=== PATIENT | female | born 1995 | race African-American/Black ===

== ENCOUNTER 2024-03-21 14:41 | Emergency (ER) | payer OTHER ==
[~2024-03-21] VITALS: Ht 165.1 cm; Wt 75.0 kg
[2024-03-21 14:45] VITALS: PULSE 93; O2SAT 100
[2024-03-21 15:11] VITALS: BP 148/66; RESP 18; TEMP 97.8; O2SAT 99
== END 2024-03-21 18:53 | disposition home or self-care (01) ==
LOC: ER 14:41
DX: T17.1XXA Foreign body in nostril, initial encounter (principal); Z88.1 Allergy status to other antibiotic agents; X58.XXXA Exposure to other specified factors, initial encounter; Y93.89 Activity, other specified; Y92.89 Other specified places as the place of occurrence of the external cause; Y99.8 Other external cause status
CPT/HCPCS: 99281